=== PATIENT | male | born 1945 | race Caucasian/White ===

== ENCOUNTER 2025-06-13 08:46 | Emergency (ER) | payer OTHER, SELFPAY ==
[2025-06-13 10:43] LABS: Hematocrit 41.6 % (39.0-52.0); Hemoglobin 13.3 g/dL (13.0-18.0); Mean Corp Hgb Conc. 32.0 g/dL (33.0-37.0); Mean Corpuscular Volume 93.1 fL (80.0-94.0); Nucleated Red Blood Cells % 0 % (-); Platelet Count 271 10^3/uL (130-400); Red Cell Dist. Width 13.2 % (11.5-14.5)
[2025-06-13 11:03] LABS: ALT (SGPT) 125 U/L (0-50); AST (SGOT) 154 U/L (17-59); Albumin 4.6 g/dl (3.5-5.0); Alkaline Phosphatase 87 U/L (38-126); Blood Urea Nitrogen 12 mg/dl (9-20); Calcium 9.4 mg/dl (8.4-10.2); Carbon Dioxide 29 mmol/L (22-30); Chloride 102 mmol/L (98-107); Glucose 103 mg/dl (70-99); Lipase 67 U/L (23-300); Potassium 4.5 mmol/L (3.5-5.1); Sodium 136 mmol/L (135-145); Total Protein 8.1 g/dl (6.3-8.2); eGFR > 60.00
--- NOTE | 2025-06-13 11:20 | ED.GENMED ---
History of Present Illness
General
Chief Complaint: Abdominal Pain
Source: patient
Exam Limitations: none
Time Seen by Provider: 06/13/25 10:06
Nursing documentation reviewed up to this point in time: agreed with
History of Present Illness
History of Present Illness:
The patient is an 79-year-old male with a medical history significant for arthritis, HLD, HTN, GERD, presenting with abdominal pain that began on 4-5 days ago with mild discomfort and has gradually worsened. The pain started on the left lower
quadrant and has begun to radiate to the right. The patient went to 3 days ago and was started on amoxicillin with clavulanate. He has taken approximately 10 doses. The patient reports chills, but no fever, nausea, or vomiting. He experiences
both diarrhea and constipation. Denies SOB, CP. Currently, he rates his pain as 6/10, indicating it has been getting worse despite some improvement in chills. No blood in stool was noticed.
The patient is currently on the following medications:
- Amlodipine
- Aspirin
- Atorvastatin
- Famotidine
- Miralax
- Pantoprazole
- Restasis (eye drops)
Past History
Past History
ED Past Medical History: GERD, HTN, Hypercholesterolemia and Other (Diverticulosis)
Social History
Tobacco: Non-smoker
Alcohol: Occasional
Personal:
Living: with family
Employment: Retired
Review of Systems
Review of Systems
Allergies reviewed?: Yes
All Other Systems: ROS reviewed and negative except as documented in HPI and ROS
Phy Exam
Physical Exam
Physical Exam:
GENERAL: No acute distress. A&Ox3.
CONSTITUTIONAL: Afebrile.
EYES: clear, conjunctivae normal
ENMT: moist mucus membranes, Pharynx nl
RESPIRATORY: Regular respirations, nonlabored, lungs clear.
CARDIOVASCULAR: Regular rate and rhythm, no murmurs, no rubs.
GI: Soft, LLQ tenderness, no guarding, normal BS
MUSCULOSKELETAL: Moves with ease. Well perfused.
SKIN: Warm, dry, pink
PSYCH: Normal mood and affect. Well kept, interactive and appropriate
NEUROLOGIC: Awake, alert and oriented. No focal neurological deficits
Course
Orders/Labs/Results
Orders:
Orders
06/13/25 10:07
CT Abd/Pel (IV only)-DH only Urgent
Comment:
Reason For Exam: abd pain hx diverticulits
06/13/25 10:15
Complete Blood Count/With Diff Urgent
Comprehensive Metabolic Panel Urgent
Lipase Urgent
Abnormal Lab Results
06/13/25
10:15
RBC 4.47 L 10^6/uL
(4.70-6.10)
MCHC 32.0 L g/dL
(33.0-37.0)
Absolute Lymphs (auto) 1.0 L 10^3/uL
(1.2-3.4)
Absolute Monos (auto) 1.1 H 10^3/uL
(0.1-0.6)
Lymphocytes % 12.7 L %
(20.5-51.1)
Monocytes % 14.4 H %
(1.7-9.3)
Glucose 103 H mg/dl
(70-99)
AST 154 H U/L
(17-59)
ALT 125 H U/L
(0-50)
06/13/25 10:15
06/13/25 10:15
Vital Signs
Initial and Last Documented VS:
Initial Vital Signs
Temp Pulse Resp Pulse Ox
98.0 F 60 16 98
06/13/25 09:01 06/13/25 09:01 06/13/25 09:01 06/13/25 09:01
Last Documented Vital Signs
Temp Pulse Resp BP Pulse Ox
98.0 F 60 16 138/78 98
06/13/25 09:01 06/13/25 09:01 06/13/25 09:01 06/13/25 12:36 06/13/25 11:25
Senior Cost Analyst consulted with Physician
Senior Cost Analyst consulted with physician?: Yes
Name of Physician Consulted: Dolly
MDM/Problems Addressed
Differential Diagnosis Includes:
Diverticulitis, colitis, constipation
MDM/Problems Addressed:
The patient is an 79-year-old male with a medical history significant for arthritis, HLD, HTN, GERD, presenting with abdominal pain that began on 4-5 days ago with mild discomfort and has gradually worsened. The pain started on the left lower
quadrant and has begun to radiate to the right. The patient went to 3 days ago and was started on amoxicillin with clavulanate. He has taken approximately 10 doses. The patient reports chills, but no fever, nausea, or vomiting. He experiences
both diarrhea and constipation. Denies SOB, CP. Currently, he rates his pain as 6/10, indicating it has been getting worse despite some improvement in chills. No blood in stool was noticed.
CBC with no clinically significant abnormality
CMP: mild elevation in liver enzymes, otherwise normal
Lipase normal
12:15 PM:
CT abdomen pelvis with IV contrast radiology report texted: Acute uncomplicated sigmoid diverticulitis
Discussed with Dr. Campos who agrees w changing the antibiotic from Augmentin to Bactrim and Flagyl (pt had muscle and tendon problems in past with Cipro)
GI referral provided
Comment
Comment:
Number and Complexity of Problems Addressed: Chronic conditions affecting care include hypertension and gastroesophageal reflux disease.
*Pulse Oximetry
SaO2: 98
Oxygen Mode of Delivery: Room air
Patient hypoxic: not evaluated
*Critical Care Note
Total Time (30-74mins, 75-104mins- exclusive of procedures): Not Applicable
ED Attending Note
-
Portions of this chart may have been created with voice recognition software.� Occasional wrong word or��sound alike� substitutions may have occurred due to the inherent limitations of voice recognition software.
Discharge Plan
Departure
Patient Disposition: Home (Routine Discharge)
Date of Disposition: 06/13/25
Time of Disposition: 12:34
Patient with high blood pressure during this ER visit?: No
Condition: Good
Discharge Problem:
Diverticulitis
Instructions: Diverticulitis (DC)
Prescriptions:
New
sulfamethoxazole-trimethoprim [Bactrim DS] 800-160 mg tablet
1 tab PO BID Qty: 14 0RF
metronidazole 500 mg tablet
500 mg PO TID Qty: 21 0RF
No Action
simvastatin 20 MG tablet
20 mg PO QPM
esomeprazole magnesium [Nexium] 40 MG capsule,delayed release(DR/EC)
40 mg PO DAILY
lisinopril 10 MG tablet
10 mg PO DAILY
aspirin 325 MG tablet,delayed release (DR/EC)
81 mg PO DAILY
rxcrwcni-nrq-VK-lycopen-lutein [Centrum Silver] 1 EACH tablet
1 tab PO DAILY
Referrals:
Tip Chen, DO [Active, Gastroenterology] - As needed
Sandeep Kuhn MD [Family Provider, Internal Medicine]
Activity Restrictions/Additional Instructions:
As we discussed, stop the amoxicillin/clavulanate. I sent a prescription to your pharmacy for new antibiotic Flagyl to take 3 times a day and Bactrim to take twice a day for the next 7 days.
I have provided you with name of GI doctor to use if needed. Please inform your doctor of today's visit.
Interventions
Interventions:
*Risk Screen - Suicide Last Done: 06/13/25 09:01
*General Assessment Last Done: 06/13/25 09:01
*Neglect/Abuse Screening Last Done: 06/13/25 09:01
*ED- Fall Risk Assessment Last Done: 06/13/25 12:41
*ED COVID-19 Vaccine History Last Done: 06/13/25 12:41
*ED Influenza Vaccine History Last Done: 06/13/25 12:41
*Nursing Disposition Last Done: 06/13/25 12:41
HH-Sbnkkh-Nmeqvymros Assessment Last Done: 06/13/25 10:26
Discharge Date and Time
Discharge Date/Time: 06/13/25 12:41
Print Language: FRISIAN
[2025-06-13 12:36] VITALS: BP 138/78
== END 2025-06-13 12:41 | disposition home or self-care (01) ==
LOC: EMR 08:46
PROVIDERS: Registered Nurse; EMERGENCY PHYSICIAN Emergency Medicine; FAMILY PHYSICIAN Internal Medicine
DX: K57.32 Diverticulitis of large intestine without perforation or abscess without bleeding (principal); E78.00 Pure hypercholesterolemia, unspecified; I10 Essential (primary) hypertension
CPT/HCPCS: 99284; 74177; 80053; 83690; 85025; Q9967